=== PATIENT | female | born 1970 | race Hispanic/Latino ===

== ENCOUNTER 2018-10-21 06:36 | Emergency (ER) | payer SELFPAY ==
[~2018-10-21] VITALS: Ht 162.6 cm; Wt 68.0 kg
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
[2018-10-21] MEDS ORDERED: Morphine Sulfate 4mg/ml Inj (IV/IM USE ONLY) IVP ONE (06:45)
[2018-10-21 07:00] VITALS: BP 138/84
[2018-10-21] MEDS ORDERED: Sodium Chloride 500ML 500 ML IV ONE (07:00)
[2018-10-21 07:12] LABS: INR 0.9 (0.9-1.1)
[2018-10-21 07:17] LABS: EOSINOPHILS % (AUTO) 2.8 % (0.0-3.0); HEMATOCRIT 42.1 % (37.0-47.0); LYMPHOCYTES % (AUTO) 40.5 % (20.0-45.0); MEAN CORPUSCULAR VOLUME 88 FL (80-99); MONOCYTES % (AUTO) 6.5 % (1.0-10.0); NEUTROPHILS % (AUTO) 49.2 % (45.0-75.0); PLATELET COUNT 286 K/UL (150-450); RED BLOOD COUNT 4.77 M/UL (4.20-5.40); RED CELL DISTRIBUTION WIDTH 11.6 % (11.6-14.8); WHITE BLOOD COUNT 8.7 K/UL (4.8-10.8)
[2018-10-21 07:34] LABS: ANION GAP 10 mmol/L (5-15); BLOOD UREA NITROGEN 10 mg/dL (7-18); CALCIUM 8.5 MG/DL (8.5-10.1); CARBON DIOXIDE 25 MMOL/L (21-32); CHLORIDE 106 MMOL/L (98-107); CREATININE 0.7 MG/DL (0.55-1.30); POTASSIUM 4.3 MMOL/L (3.5-5.1); SODIUM 141 MMOL/L (136-145)
[2018-10-21 07:39] LABS: ALANINE AMINOTRANSFERASE 36 U/L (12-78); ALBUMIN 3.2 G/DL (3.4-5.0); ALBUMIN/GLOBULIN RATIO 0.7 (1.0-2.7); ALKALINE PHOSPHATASE 114 U/L (46-116); ASPARTATE AMINO TRANSFERASE 33 U/L (15-37); BILIRUBIN,TOTAL 0.4 MG/DL (0.2-1.0)
[2018-10-21] MEDS ORDERED: Isovue-300 100ml vial INJ PRN (08:00)
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
[2018-10-21 09:00] VITALS: BP 138/84
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
[2018-10-21] MEDS ORDERED: Ketorolac 30mg Inj IV ONE (10:30)
[2018-10-21 11:00] VITALS: BP 108/70
[2018-10-21] MEDS ORDERED: NORCO 5-325 TA1 EACH ORAL (12:09)
[2018-10-21] MEDS ORDERED: IBUPROFEN600 MG ORAL (12:09)
[2018-10-21 12:32] VITALS: BP 102/65
[2018-10-21 12:33] VITALS: BP 102/65
--- NOTE | 2018-10-22 11:48 | Cardiology Report ---
APPROVED REPORT EKG Measurement Heart [id number] IL [id number] [id number] Normal sinus rhythm Normal ECG
== END 2018-10-21 12:35 | disposition home or self-care (01) ==
LOC: EDBD 06:36 → EMR 07:07
DX: S20.219A Contusion of unspecified front wall of thorax, initial encounter (principal); S30.1XXA Contusion of abdominal wall, initial encounter; V43.52XA Car driver injured in collision with other type car in traffic accident, initial encounter; Y92.410 Unspecified street and highway as the place of occurrence of the external cause; R51 Headache; M54.2 Cervicalgia
CPT/HCPCS: 36415; 70450; 71045; 71260; 72125; 74177; 80053; 85025; 85610; 85730; 86850; 86900; 86901; 93005; 96374; 96375; 99284; J1885; J2270; J2405; J7040; Q9967

== ENCOUNTER 2018-11-03 13:13 | Emergency (ER) | payer SELFPAY ==
[~2018-11-03] VITALS: Ht 160 cm; Wt 72.6 kg
[~2018-11-03 13:13] MED LIST: IBUPROFEN600 MG ORAL; NORCO 5-325 TA1 EACH ORAL
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
[2018-11-03] MEDS ORDERED: ROBAXIN-750750 MG PO (14:18)
[2018-11-03] MEDS ORDERED: ACETAMINOPHEN500 M3 ORAL (14:18)
[2018-11-03 15:17] VITALS: BP 116/82
[2018-11-03 15:31] LABS: APPEARANCE,URINE CLEAR; BILIRUBIN, URINE NEGATIVE (NEGATIVE); COLOR,URINE PALE YELLOW; GLUCOSE, URINE (UA) NEGATIVE (NEGATIVE); KETONES,URINE NEGATIVE (NEGATIVE); LEUKOCYTE ESTERASE ,URINE 1+ (NEGATIVE); NITRITE,URINE NEGATIVE (NEGATIVE); PH,URINE 5 (4.5-8.0); PROTEIN,URINE NEGATIVE (NEGATIVE); UROBILINOGEN,URINE NORMAL MG/DL (0.0-1.0)
[2018-11-03 15:33] LABS: BASOPHILS % (AUTO) 0.8 % (0.0-2.0); EOSINOPHILS % (AUTO) 1.9 % (0.0-3.0); HEMATOCRIT 42.3 % (37.0-47.0); LYMPHOCYTES % (AUTO) 28.9 % (20.0-45.0); MEAN CORPUSCULAR VOLUME 88 FL (80-99); MONOCYTES % (AUTO) 5.4 % (1.0-10.0); PLATELET COUNT 376 K/UL (150-450); RED BLOOD COUNT 4.84 M/UL (4.20-5.40); RED CELL DISTRIBUTION WIDTH 11.8 % (11.6-14.8); WHITE BLOOD COUNT 8.8 K/UL (4.8-10.8)
[2018-11-03 15:34] LABS: ANION GAP 8 mmol/L (5-15); BLOOD UREA NITROGEN 13 mg/dL (7-18); CALCIUM 9.6 MG/DL (8.5-10.1); CARBON DIOXIDE 29 MMOL/L (21-32); CHLORIDE 105 MMOL/L (98-107); CREATININE 0.8 MG/DL (0.55-1.30); POTASSIUM 4.3 MMOL/L (3.5-5.1); SODIUM 142 MMOL/L (136-145)
[2018-11-03 15:38] LABS: ALANINE AMINOTRANSFERASE 27 U/L (12-78); ALBUMIN 3.6 G/DL (3.4-5.0); ALBUMIN/GLOBULIN RATIO 0.7 (1.0-2.7); ALKALINE PHOSPHATASE 152 U/L (46-116); ASPARTATE AMINO TRANSFERASE 19 U/L (15-37); BILIRUBIN,TOTAL 0.7 MG/DL (0.2-1.0)
[2018-11-03 16:09] VITALS: BP 123/86
--- NOTE | 2018-11-03 16:10 | NUR ---
ED Nurse Note: PT SITTING PEACEFULLY IN BED IN NAD. AOX4. PRESCRIPTIONS AND DISCHARGE PAPERWORK EXPLAINED TO PT. PT VERBALIZES UNDERSTANDING AND DENIES ANY QUESTIONS AT THIS TIME. PRESCRIPTIONS AND DISCHARGE PAPERWORK GIVEN TO PT AND ID WRISTBAND REMOVED. PT WALKED OUT OF ER WITH STEADY GAIT AND ALL BELONGINGS.
== END 2018-11-03 16:10 | disposition home or self-care (01) ==
LOC: EMR 16:00
DX: S16.1XXA Strain of muscle, fascia and tendon at neck level, initial encounter (principal); X58.XXXA Exposure to other specified factors, initial encounter; Y92.9 Unspecified place or not applicable; R10.9 Unspecified abdominal pain
CPT/HCPCS: 36415; 80053; 81003; 81025; 83690; 85025; 99283